=== PATIENT | male | born 1940 | race Caucasian/White ===

== ENCOUNTER 2018-12-26 11:30 | Inpatient (IN) | payer OTHER, MEDICARE ==
[~2018-12-26] VITALS: Ht 177.8 cm; Wt 69.8 kg
[~2018-12-26 11:30] MED LIST: ALBU90OI INH; ASPI325B; AZIT500 PO; CODGUAEL PO; METPRE4DP PO; Prednisone50 MG PO; SPACE CHAMBER1 EACH INH; Zithromax250 MG PO
[2018-12-26] MEDS ORDERED: ENTRESTO 24 MG1 EACH PO (12:12)
[2018-12-26] MEDS ORDERED: BUDE6HFA INH (12:12)
[2018-12-26] MEDS ORDERED: NITR.4SL SL (12:14)
[2018-12-26 12:25] LABS: BASOPHILS ABSOLUTE AUTO 0.01 K/mm3 (0.00-0.23); BASOPHILS PERCENT AUTO 0 % (0-2); EOSINOPHILS PERCENT AUTO 0 % (0-6); Hemoglobin 11.9 g/dL (13.5-17.5); IMMATURE GRAN ABSOLUTE AUTO 0.09 K/mm3 (0.00-0.10); IMMATURE GRAN PERCENT AUTO 1 % (0-1); LYMPHOCYTES ABSOLUTE AUTO 1.44 K/mm3 (0.84-5.20); LYMPHOCYTES PERCENT AUTO 10 % (21-46); MONOCYTES ABSOLUTE AUTO 1.32 K/mm3 (0.16-1.47); MONOCYTES PERCENT AUTO 9 % (4-13); Mean Corpuscular HGB Conc 33.1 g/dL (31.5-36.5); Mean Corpuscular Volume 100 fL (80-100); Mean Platelet Volume 12.4 fL (9.1-12.4); NEUTROPHILS ABSOLUTE AUTO 12.23 K/mm3 (1.96-9.15); NEUTROPHILS PERCENT AUTO 81 % (41-73); NRBC ABSOLUTE 0.06 K/mm3 (0.00-0.02); NRBC Auto 0.4 /100 WBC (0.0-0.2); RDW Coefficient Variation 15.4 % (11.7-14.2); RDW Standard Deviation 55.9 fL (35.1-46.3); Red Blood Cell Count 3.61 M/mm3 (4.30-5.90); White Blood Cell Count 15.09 K/mm3 (4.00-11.30)
[2018-12-26 12:29] LABS: Platelet Count 72 K/mm3 (150-400)
[2018-12-26 12:35] LABS: Thyroid Stimulating Hormone 1.25 uIU/mL (0.360-4.800)
[2018-12-26 12:37] LABS: International Normalized Ratio 1.71; Prothrombin Time Results 17.3 Sec (9.7-11.5)
[2018-12-26 12:45] LABS: Albumin, Blood 3.3 g/dL (3.4-5.0); Albumin/Globulin Ratio 1.3 (0.8-1.8); Bilirubin, Total 1.9 mg/dL (0.1-1.0); Bun/Creatinine Ratio 14.9 (12.0-20.0); Calcium, Blood 6.9 mg/dL (8.5-10.1); Creatinine, Blood 6.05 mg/dL (0.60-1.20); Globulin, Blood 2.5 g/dL (2.2-4.0); Potassium, Blood 4.9 mmol/L (3.5-5.5); Total Protein, Blood 5.8 g/dL (6.4-8.2)
[2018-12-26] MEDS ORDERED: Adult Low Dose81 MG PO (13:19)
[2018-12-26] MEDS ORDERED: ATORVASTATIN CA80 MG PO (13:19)
[2018-12-26] MEDS ORDERED: CLOP75 PO (13:19)
[2018-12-26] MEDS ORDERED: FUROSEMIDE20 MG PO (13:20)
[2018-12-26] MEDS ORDERED: METOPROLOL SUCC25 MG PO (13:20)
[2018-12-26] MEDS ORDERED: Spironolactone25 MG PO (13:21)
[2018-12-26] MEDS ORDERED: Preservision A1 EACH PO (13:23)
--- NOTE | 2018-12-26 14:45 | NUR ---
REPORT WAS CALLED TO AMIRAH GARCIA, COMPUTER FORENSICS EXAMINER, BY ROSALIE RN, ED, AMIRAH GARCIA THEN GAVE REPORT TO THIS RN, PATIENT ARRIVED IN ROOM 7 VIA STRETCHER FROM ED, MOVED TO BED VIA SLIDER, PLACED ON TOUR LEADER, PATIENT IS ON LEVOPHED DRIP, HEPARIN DRIP, AND AMIODARONE DRIP UPON ARRIVAL, ALSO HAS NORMAL SALINE INFUSING FOR IV MAINTENANCE, PATIENT IS AWAKE, ALERT AND ORIENTED, LUNG SOUNDS WITH EXPIRATORY WHEEZES IN ALL LUNG ANTHONY, SINUS TACHYCARDIA WITH HEART RATE IN 130'S TO 140'S, BLOOD PRESSURES IN 70'S - 90'S, PATIENT IS ON RA SATING AT 93 %, PATIENT WAS PLACED IN A HOSPITAL GOWN, PERSONAL BELONGINGS PLACED IN A PATIENT BELONGINGS BAG AND GIVEN TO FAMILY, ADMISSION HISTORY COMPLETED WITH HELP OF FAMILY, ORIENTED TO NEW ENVIRONMENT AND ROOM, CALL LIGHT GIVEN AND EXPLAINED, FAMILY AND PATIENT VERBALIZED UNDERSTANDING, URINAL PLACED AT BEDSIDE, CALL LIGHT IN REACH, WILL CONTINUE TO MONITOR.
--- NOTE | 2018-12-26 16:30 | NUR ---
DR. CHRISTOPHER BANG NOTIFIED ABOUT CRITICAL LAB VALUES, TROPONIN 4.620 AND LACTIC ACID 3.3, NO NEW ORDERS RECEIVED.
--- NOTE | 2018-12-26 17:03 | NUR ---
DR. LEGER NOTIFIED VIA TELEPHONE, THAT HE IS CONSULTED ON THIS PATIENT.
--- NOTE | 2018-12-26 17:44 | NUR ---
SHIFT SUMMARY NOTE: NO ACUTE EVENTS SINCE PATIENT ADMISSION TO UNIT, CONTINUES ON LEVOPHED 20 MCG/KG/MIN, FOR LOW BLOOD PRESSURES, AND AMIODARONE 1 MG/MIN UNTIL 2000 HOURS, THEN CHANGE TO HALF THE DOSE AT 0.5 MG/MIN PER PROTOCOL, ALSO ON HEPARIN GTT AT 13 UNITS, MANAGED BY PHARMACY, PATIENT IS MOSTLY SLEEPING, STATED "I HAVE NOT SLEPT IN 3 DAYS", DR. DE LA ROSA CONSULTED FOR CARDIOLOGY AND DR. LEGER CONSULTED FOR NEPHROLOGY, PATIENT HAS ACUTE KIDNEY INJURY, FOR DETAILS SEE ADMISSION AND SHIFT ASSESSMENT DOCUMENTATION AND NURSES NOTES, FAMILY AT BEDSIDE, CALL LIGHT IN REACH, WILL CONTINUE TO MONITOR AND GIVE REPORT TO ONCOMING CREDIT PRODUCT ANALYST.
--- NOTE | 2018-12-26 18:30 | NUR ---
DR. BANG IN TO SEE PATIENT, WILL WRITE NEW ORDERS.
--- NOTE | 2018-12-26 18:36 | NUR ---
PATIENT PLACED ON BEDPAN, VERBALIZED THE URGE TO HAVE A BM.
--- NOTE | 2018-12-26 18:45 | NUR ---
PATIENT OFF BEDPAN, NO BM, C/O STABBING PAIN IN MIDDLE OF CHEST.
--- NOTE | 2018-12-26 19:10 | NUR ---
SHIFT CHANGE WENT IN TO MOVE PT UP IN BED. PT STATES HE IS HAVING DIFFICULTY BREATHING. PT IS PURSED LIP BREATHING. PLACED ON OXYGEN VIA NC AND CALLED RT FOR BREATHING TREATMENT. PT ALSO STATES HE HAS SHARP PAIN FROM LOW STERNUM ALL THE WAY THROUGH TO HIS BACK. STATES IT IS 7/10. DR. BANG HAS BEEN PAGED.
--- NOTE | 2018-12-26 19:16 | NUR ---
DR. BANG CALLED TO DISCUSS PAIN MEDICATION FOR PATIENT, LEFT MESSAGE ON CELL PHONE.
[2018-12-26 19:21] LABS: Source, Urine Catheter
--- NOTE | 2018-12-26 19:25 | NUR ---
RT IN ROOM TO GIVE BREATHING TX AND TRYING TO GET ACCURATE SPO2.
[2018-12-26 19:32] LABS: Blood, Urine 4+ (Neg); Glucose Qualitative, Urine 1+ (Neg); Ketones, Urine 1+ (Neg); Leukocyte Esterase, Urine 2+ (Neg); Nitrite, Urine Neg (Neg); Protein, Urine 2+ (Neg); Urobilinogen, Urine 2+ (Normal)
--- NOTE | 2018-12-26 19:35 | NUR ---
PT IS UNRESPONSIVE. FAMILY AT BEDSIDE. DAUGHTER AT BEDSIDE IS AWARE THAT PT IS NOT DOING WELL AND IS PASSING AND NOT SURE THAT THEY WANT TO DO ANYTHING ELSE AT THIS POINT. PT IS ALREADY A LIMITED CODE AND ONLY WANTS MEDICATIONS. PT IS ON LEVOPHED AND AMIODORONE THROUGH PERIPHERAL IV'S.
[2018-12-26 19:43] LABS: Appearance, Urine Clear (Clear); Bilirubin, Urine 1+ (Neg); Color, Urine Yellow (P-Yellow)
--- NOTE | 2018-12-26 19:44 | NUR ---
PT WITH FAMILY AT BEDSIDE. NO HR FOUND WITH AUSCULATATION. WILL NOTIFY MD AND ASSISTED LIVING ASSISTANT.
[2018-12-26 19:46] LABS: Amorphous Mod (0-Heavy); Red Blood Cells, Urine 0-2 /hpf (0-2); Squamous Epithelial Cells Few /hpf (Few)
[2018-12-26 19:47] LABS: Bacteria Many /hpf
== END 2018-12-26 19:44 ==
LOC: ER 11:30 → ICUW 13:25 → ICUE 13:25
PROVIDERS: Emergency Medicine; ADMIT Family Medicine
PROC: 3E033XZ Introduction of Vasopressor into Peripheral Vein, Percutaneous Approach (ICD-10-PCS; principal; 2018-12-26)
DX: I47.2 Ventricular tachycardia (principal); J18.9 Pneumonia, unspecified organism; I21.A1 Myocardial infarction type 2; N17.9 Acute kidney failure, unspecified; E87.2 Acidosis; J44.1 Chronic obstructive pulmonary disease with (acute) exacerbation; Z66 Do not resuscitate; I25.2 Old myocardial infarction; Z85.46 Personal history of malignant neoplasm of prostate; I25.10 Atherosclerotic heart disease of native coronary artery without angina pectoris; Z79.82 Long term (current) use of aspirin; Z98.62 Peripheral vascular angioplasty status; F17.210 Nicotine dependence, cigarettes, uncomplicated; I25.5 Ischemic cardiomyopathy; R57.0 Cardiogenic shock; D69.6 Thrombocytopenia, unspecified; I08.1 Rheumatic disorders of both mitral and tricuspid valves; E87.5 Hyperkalemia; Z98.52 Vasectomy status; Z79.02 Long term (current) use of antithrombotics/antiplatelets; D63.1 Anemia in chronic kidney disease; N18.9 Chronic kidney disease, unspecified
CPT/HCPCS: 36415; 51702; 71045; 80053; 81001; 83605; 84443; 84484; 85025; 85610; 85730; 87040; 87086; 93005; 93010; 94640; 96361; 96365; 96375; 99285-25; J0282; J1644; J2370; J2543; J7030; J7060